=== PATIENT | female | born 1950 | race African-American/Black ===

== ENCOUNTER 2022-01-26 17:45 | Emergency (ER) | payer OTHER ==
[2022-01-26 18:17] VITALS: BP 143/85; PULSE 95; TEMP 98.5; BMI 30.1
== END 2022-01-26 20:15 | disposition home or self-care (01) ==
LOC: JER 17:45
DX: T39.015A Adverse effect of aspirin, initial encounter (principal)
CPT/HCPCS: 99281-25

== ENCOUNTER 2022-05-30 10:33 | Emergency (ER) | payer OTHER ==
[2022-05-30 10:38] VITALS: BP 103/67; PULSE 99; RESP 18; TEMP 97.8; BMI 26.5
== END 2022-05-30 12:41 | disposition home or self-care (01) ==
LOC: JER 10:33 → JERFT 10:33
DX: M54.50 Low back pain, unspecified (principal)
CPT/HCPCS: 99283-25

== ENCOUNTER 2022-12-10 13:18 | Inpatient (IN) | payer OTHER ==
[2022-12-10] MEDS ORDERED: ACETAMINOPHEN 1000 MG/100 ML BAG IVPB ONE ×2 (14:39→16:16)
[2022-12-10] MEDS ORDERED: ACETAMINOPHEN INJECTION 100 ML IVPB ONE (15:02)
[2022-12-10 15:03] LABS: BASO % 0.4 % (0-2.0); EOS % 0.2 % (0-4.5); HEMATOCRIT 32.1 % (32.4-45.2); HEMOGLOBIN 10.4 GM/dL (10.7-15.3); MCH 24.2 pg (25.7-33.7); MCHC 32.5 g/dl (32.0-36.0); MEAN CELL VOLUME 74.4 fl (80-96); MEAN PLT VOLUME 7.7 fl (7.5-11.1); MONO % 6.9 % (3.8-10.2); NEUT % 85.5 % (42.8-82.8); PLATELET COUNT 291 10^3/uL (134-434); RBC 4.31 M/mm3 (3.60-5.2); RDW 14.5 % (11.6-15.6); WHITE BLOOD COUNT 13.5 K/mm3 (4.0-10.0)
[2022-12-10 15:09] LABS: VENOUS BASE EXCESS 4.6 mmol/L (-2-2); VENOUS O2 SATURATION 34.5 % (70-80); VENOUS PCO2 51.5 mmHg (38-52); VENOUS PH 7.392 (7.310-7.410)
[2022-12-10 15:14] LABS: INR 1.14 (0.83-1.09); PROTHROMBIN TIME (PATIENT) 13.2 SEC (9.7-13.0)
[2022-12-10 15:16] LABS: ACTIVATED PTT 27.5 SECONDS (25.2-36.5)
[2022-12-10] MEDS ORDERED: PIPERACILLIN/TAZOB 4.5 GM 4.5 GM in DEXTROSE 5%-WATER 100 ML IVPB ONE (16:15)
[2022-12-10 16:16] LABS: ALBUMIN 2.5 g/dl (3.4-5.0); ALK PHOS 91 U/L (45-117); ANION GAP 9 MMOL/L (8-16); BILIRUBIN,TOTAL 0.8 mg/dL (0.2-1); BLOOD UREA NITROGEN 12.1 mg/dL (7-18); CALCIUM 8.5 mg/dL (8.5-10.1); CHLORIDE 101 mmol/L (98-107); CO2 23 mmol/L (21-32); CREATININE 0.8 mg/dL (0.55-1.3); GLUCOSE,RANDOM 103 mg/dL (74-106); LIPASE 70 U/L (73-393); SGOT/AST 92 U/L (15-37); SGPT/ALT 31 U/L (13-61); SODIUM 133 mmol/L (136-145); TOT PROT 7.1 g/dl (6.4-8.2)
[2022-12-10 16:43] LABS: EPI CELLS 8 /uL (0-25.1); HYALINE CASTS 22 /uL (0-3.1); PH,URINE 5.5 (5.0-8.0); URINE APPEARANCE CLOUDY; URINE BACTERIA 661 /uL (0-1359); URINE BILIRUBIN NEGATIVE (NEGATIVE); URINE COLOR DK YELLOW; URINE GLUCOSE (UA) NEGATIVE (NEGATIVE); URINE KETONE TRACE (NEGATIVE); URINE LEUK ESTERASE 2+ (NEGATIVE); URINE NITRITE NEGATIVE (NEGATIVE); URINE PROTEIN 1+ (NEGATIVE); URINE WBC 664 /uL (0-25.8)
[2022-12-10 16:47] VITALS: RESP 20
[2022-12-10 17:30] LABS: URINE RBC 75 /uL (0-23.9)
[2022-12-10 18:05] LABS: CALCIUM 8.6 mg/dL (8.5-10.1)
[2022-12-10 18:06] LABS: BLOOD UREA NITROGEN 12.7 mg/dL (7-18)
[2022-12-10 18:09] LABS: CREATININE 0.6 mg/dL (0.55-1.3)
[2022-12-10] MEDS ORDERED: SODIUM CHLORIDE 0.9% 500 ML INFUS.BAG IV ONE (20:17)
[2022-12-11] MEDS: CEFTRIAXONE 1 GM in DEXTROSE 5%-WATER - 50 ML IVPB SCH ×3 (02:44→10:34)
[2022-12-11 08:45] VITALS: BMI 24.4
[2022-12-11 09:50] LABS: BASO % 0.3 % (0-2.0); BLOOD UREA NITROGEN 10.4 mg/dL (7-18); CALCIUM 9.5 mg/dL (8.5-10.1); EOS % 0.5 % (0-4.5); HEMATOCRIT 32.2 % (32.4-45.2); HEMOGLOBIN 10.7 GM/dL (10.7-15.3); LYMPH % 8.6 % (8-40); MCH 24.5 pg (25.7-33.7); MCHC 33.2 g/dl (32.0-36.0); MEAN CELL VOLUME 73.8 fl (80-96); MEAN PLT VOLUME 7.9 fl (7.5-11.1); NEUT % 82.6 % (42.8-82.8); PLATELET COUNT 351 10^3/uL (134-434); RBC 4.36 M/mm3 (3.60-5.2); RDW 14.5 % (11.6-15.6); WHITE BLOOD COUNT 12.3 K/mm3 (4.0-10.0)
[2022-12-11 09:53] LABS: CREATININE 0.7 mg/dL (0.55-1.3)
[2022-12-11 09:55] LABS: BILIRUBIN,TOTAL 0.4 mg/dL (0.2-1); TOT PROT 7.3 g/dl (6.4-8.2)
[2022-12-11] MEDS: ENOXAPARIN NA (PORCINE) 40 MG/0.4 ML DISP.SYRIN SQ SCH (11:28)
[2022-12-11] MEDS ORDERED: ACETAMINOPHEN 325 MG TABLET (FP) PO PRN (16:56)
[2022-12-11 17:05] LABS: CALCIUM 8.5 mg/dL (8.5-10.1)
[2022-12-11 17:06] LABS: ALBUMIN 2.5 g/dl (3.4-5.0); BLOOD UREA NITROGEN 10.6 mg/dL (7-18); MAGNESIUM 2.1 mg/dL (1.8-2.4)
[2022-12-11 17:09] LABS: CREATININE 0.7 mg/dL (0.55-1.3)
[2022-12-11 17:11] LABS: BILIRUBIN,TOTAL 0.2 mg/dL (0.2-1); TOT PROT 6.3 g/dl (6.4-8.2)
[2022-12-11 17:35] LABS: BASO % 0.2 % (0-2.0); EOS % 0.8 % (0-4.5); HEMATOCRIT 29.6 % (32.4-45.2); HEMOGLOBIN 9.9 GM/dL (10.7-15.3); LYMPH % 9.6 % (8-40); MCH 24.6 pg (25.7-33.7); MCHC 33.3 g/dl (32.0-36.0); MEAN CELL VOLUME 73.8 fl (80-96); MEAN PLT VOLUME 7.2 fl (7.5-11.1); NEUT % 80.4 % (42.8-82.8); PLATELET COUNT 297 10^3/uL (134-434); RBC 4.01 M/mm3 (3.60-5.2); RDW 14.6 % (11.6-15.6); WHITE BLOOD COUNT 12.3 K/mm3 (4.0-10.0)
[2022-12-12] MEDS: CEFTRIAXONE 1 GM in DEXTROSE 5%-WATER - 50 ML IVPB SCH (09:43)
[2022-12-12] MEDS: ENOXAPARIN NA (PORCINE) 40 MG/0.4 ML DISP.SYRIN SQ SCH (09:52)
[2022-12-12 10:13] LABS: BASO % 0.5 % (0-2.0); EOS % 0.5 % (0-4.5); HEMATOCRIT 31.2 % (32.4-45.2); HEMOGLOBIN 10.3 GM/dL (10.7-15.3); LYMPH % 8.4 % (8-40); MCH 24.3 pg (25.7-33.7); MCHC 33.1 g/dl (32.0-36.0); MEAN CELL VOLUME 73.6 fl (80-96); MEAN PLT VOLUME 7.1 fl (7.5-11.1); MONO % 6.5 % (3.8-10.2); NEUT % 84.1 % (42.8-82.8); PLATELET COUNT 335 10^3/uL (134-434); RBC 4.24 M/mm3 (3.60-5.2); RDW 14.7 % (11.6-15.6); WHITE BLOOD COUNT 12.3 K/mm3 (4.0-10.0)
[2022-12-12 10:25] LABS: ALBUMIN 2.6 g/dl (3.4-5.0); CALCIUM 8.8 mg/dL (8.5-10.1)
[2022-12-12 10:26] LABS: BLOOD UREA NITROGEN 7.6 mg/dL (7-18)
[2022-12-12 10:28] LABS: CREATININE 0.7 mg/dL (0.55-1.3)
[2022-12-12 10:30] LABS: BILIRUBIN,TOTAL 0.4 mg/dL (0.2-1); TOT PROT 6.7 g/dl (6.4-8.2)
[2022-12-13 06:02] VITALS: BP 100/51; PULSE 101; TEMP 98.9
[2022-12-13 09:42] LABS: BASO % 0.2 % (0-2.0); EOS % 0.6 % (0-4.5); HEMATOCRIT 28.6 % (32.4-45.2); HEMOGLOBIN 9.5 GM/dL (10.7-15.3); LYMPH % 8.9 % (8-40); MCH 24.3 pg (25.7-33.7); MCHC 33.2 g/dl (32.0-36.0); MEAN CELL VOLUME 73.2 fl (80-96); MEAN PLT VOLUME 7.1 fl (7.5-11.1); MONO % 9.8 % (3.8-10.2); NEUT % 80.5 % (42.8-82.8); PLATELET COUNT 305 10^3/uL (134-434); RDW 14.4 % (11.6-15.6); WHITE BLOOD COUNT 12.4 K/mm3 (4.0-10.0)
[2022-12-13] MEDS: CEFTRIAXONE 1 GM in DEXTROSE 5%-WATER - 50 ML IVPB SCH (11:18)
[2022-12-13] MEDS: ENOXAPARIN NA (PORCINE) 40 MG/0.4 ML DISP.SYRIN SQ SCH (11:26)
[2022-12-13 11:36] LABS: ALBUMIN 2.4 g/dl (3.4-5.0); BLOOD UREA NITROGEN 6.6 mg/dL (7-18); CALCIUM 8.8 mg/dL (8.5-10.1)
[2022-12-13 11:39] LABS: CREATININE 0.6 mg/dL (0.55-1.3)
[2022-12-13 11:40] LABS: BILIRUBIN,TOTAL 0.2 mg/dL (0.2-1); TOT PROT 6.4 g/dl (6.4-8.2)
== END 2022-12-13 12:46 | disposition home or self-care (01) | DRG 689 ==
LOC: JER 13:18 → JERBED 19:11 → J8W 21:41
PROVIDERS: ADMIT Internal Medicine; ATTEND Nurse Practitioner Family
DX: N39.0 Urinary tract infection, site not specified (principal); E43 Unspecified severe protein-calorie malnutrition; R63.4 Abnormal weight loss; D25.9 Leiomyoma of uterus, unspecified; R62.7 Adult failure to thrive; Z68.24 Body mass index [BMI] 24.0-24.9, adult
CPT/HCPCS: 0241U-QW; 36415; 71045-TC-FY; 74177-TC; 80048; 80053; 81003; 82105; 82550; 82553; 82803; 83605; 83690; 83735; 84100; 84443; 85025; 85610; 85651; 85730; 86140; 86301; 86304; 87040; 87086; 93005; 93010; 99285-25; Q9967

== ENCOUNTER 2023-01-11 15:25 | Inpatient (IN) | payer OTHER ==
[2023-01-11] MEDS ORDERED: SODIUM CHLORIDE 1,000 ML IV STA ×2 (16:01→16:02)
[2023-01-11 16:43] LABS: HEMATOCRIT 35.9 % (32.4-45.2); HEMOGLOBIN 11.2 GM/dL (10.7-15.3); MCH 22.7 pg (25.7-33.7); MCHC 31.2 g/dl (32.0-36.0); MEAN CELL VOLUME 72.7 fl (80-96); RBC 4.93 M/mm3 (3.60-5.2); RDW 15.5 % (11.6-15.6)
[2023-01-11 16:48] LABS: INR 1.11 (0.83-1.09); PROTHROMBIN TIME (PATIENT) 12.9 SEC (9.7-13.0)
[2023-01-11 16:51] LABS: ACTIVATED PTT 26.8 SECONDS (25.2-36.5)
[2023-01-11 17:06] LABS: EPI CELLS >36 /uL (0-25.1); HYALINE CASTS 12 /uL (0-3.1); URINE APPEARANCE TURBID; URINE BILIRUBIN 1+ (NEGATIVE); URINE COLOR DK YELLOW; URINE GLUCOSE (UA) NEGATIVE (NEGATIVE); URINE KETONE TRACE (NEGATIVE); URINE LEUK ESTERASE TRACE (NEGATIVE); URINE NITRITE NEGATIVE (NEGATIVE); URINE PROTEIN 2+ (NEGATIVE); URINE WBC 227 /uL (0-25.8)
[2023-01-11 17:14] LABS: ALK PHOS 263 U/L (45-117); ANION GAP 20 MMOL/L (8-16); BILIRUBIN,TOTAL 1.3 mg/dL (0.2-1); BLOOD UREA NITROGEN 68.2 mg/dL (7-18); CALCIUM 8.9 mg/dL (8.5-10.1); CHLORIDE 105 mmol/L (98-107); CO2 16 mmol/L (21-32); GLUCOSE,RANDOM 270 mg/dL (74-106); MAGNESIUM 3.3 mg/dL (1.8-2.4); PHOSPHOROUS 7.3 mg/dL (2.5-4.9); POTASSIUM 5.1 mmol/L (3.5-5.1); SGOT/AST 114 U/L (15-37); SGPT/ALT 45 U/L (13-61); SODIUM 141 mmol/L (136-145); TOT PROT 6.6 g/dl (6.4-8.2)
[2023-01-11 17:20] LABS: VENOUS BASE EXCESS -6.6 mmol/L (-2-2); VENOUS O2 SATURATION 23.6 % (70-80); VENOUS PCO2 32.9 mmHg (38-52); VENOUS PH 7.358 (7.310-7.410)
[2023-01-11 17:23] LABS: LACTIC ACID 9.5 mmol/L (0.4-2.0)
[2023-01-11] MEDS ORDERED: LACTATED RINGERS SOLUTION 1000 ML INFUS.BAG IV ONE (17:27)
[2023-01-11] MEDS ORDERED: PIPERACILLIN/TAZOB 4.5 GM 4.5 GM in DEXTROSE 5%-WATER 100 ML IVPB ONE (17:33)
[2023-01-11] MEDS ORDERED: VANCOMYCIN 1 GM in D5W (PRE-DOCKED) 1,000 MG/250 ML (RESTRICTED TO ID ONLY IVPB ONE (17:33)
[2023-01-11 17:36] LABS: WHITE BLOOD COUNT 44.5 K/mm3 (4.0-10.0)
[2023-01-11] MEDS ORDERED: NOREPINEPHRINE BITARTRATE 4,000 MCG in DEXTROSE 5%-WATER - 496 ML IV SCH (17:45)
[2023-01-11] MEDS ORDERED: PIPERACILLIN/TAZOB 4.5 GM 4.5 GM/100 ML BAG IVPB ONE (17:47)
[2023-01-11] MEDS ORDERED: VANCOMYCIN/WATER FOR INJ (PEG) 1,000 MG/200 ML BAG IVPB ONE (18:25)
[2023-01-11 18:29] LABS: ANISOCYTOSIS 1+
[2023-01-11 18:30] LABS: PLATELET ESTIMATE DECREASED
[2023-01-11 18:34] LABS: MEAN PLT VOLUME 10.6 fl (7.5-11.1); PLATELET COUNT 12 10^3/uL (134-434)
[2023-01-11] MEDS ORDERED: SODIUM CHLORIDE 1,000 ML IV SCH ×2 (18:45→20:45)
[2023-01-11 18:53] LABS: LDH 612 U/L (84-246)
[2023-01-11 19:00] LABS: URIC ACID 14.1 mg/dL (2.6-7.2)
[2023-01-11] MEDS: MUPIROCIN 2% TOPICAL OINTMENT FOR DECOLONIZATION NS SCH (21:22)
[2023-01-11] MEDS: CHLORHEXIDINE GLUCONATE 4% CLEANSER FOR DECOLONIZATION TP SCH (21:22)
[2023-01-11 21:23] LABS: ARTERIAL BLD GAS O2 SATURATION 95.3 % (95-98); ARTERIAL BLOOD GAS BASE EXCESS -5.8 mmol/L (-2-2); ARTERIAL BLOOD GAS PO2 73.4 mmHg (80-100)
[2023-01-11 21:24] LABS: ALLENS TEST POSITIVE
[2023-01-11 21:27] LABS: LACTIC ACID 2.8 mmol/L (0.4-2.0)
[2023-01-11] MEDS ORDERED: LACTATED RINGERS SOLUTION 1,000 ML/1,000 ML INFUS.BAG IV STA (21:55)
[2023-01-11] MEDS: NOREPINEPHRINE BITARTRATE/D5W 8 MG/250 ML BAG IVPB SCH (22:57)
[2023-01-11 23:17] LABS: URINE BACTERIA 222.9 /uL (0-1359); URINE RBC 65.4 /uL (0-23.9)
[2023-01-11 23:42] LABS: HEMATOCRIT 25.8 % (32.4-45.2); HEMOGLOBIN 8.1 GM/dL (10.7-15.3); MCH 22.4 pg (25.7-33.7); MCHC 31.5 g/dl (32.0-36.0); MEAN CELL VOLUME 71.1 fl (80-96); MEAN PLT VOLUME 9.2 fl (7.5-11.1); PLATELET COUNT 41 10^3/uL (134-434); RBC 3.63 M/mm3 (3.60-5.2)
[2023-01-11 23:45] LABS: INR 1.18 (0.83-1.09); PROTHROMBIN TIME (PATIENT) 13.7 SEC (9.7-13.0)
[2023-01-11 23:52] LABS: WHITE BLOOD COUNT 47.4 K/mm3 (4.0-10.0)
[2023-01-11 23:57] LABS: POTASSIUM 3.7 mmol/L (3.5-5.1)
[2023-01-12] LABS: BLOOD UREA NITROGEN 55.7 mg/dL (7-18); MAGNESIUM 2.2 mg/dL (1.8-2.4)
[2023-01-12] MEDS ORDERED: VASOPRESSIN 40 UNITS/100 ML BAG IV SCH
[2023-01-12 00:02] LABS: URIC ACID 9.4 mg/dL (2.6-7.2)
[2023-01-12 00:03] LABS: CREATININE 1.2 mg/dL (0.55-1.3); PHOSPHOROUS 3.1 mg/dL (2.5-4.9)
[2023-01-12 00:10] LABS: LACTIC ACID 2.7 mmol/L (0.4-2.0)
[2023-01-12 00:11] LABS: CALCIUM 7.1 mg/dL (8.5-10.1)
[2023-01-12] MEDS ORDERED: GENTAMICIN INJECTION 120 MG in DEXTROSE 5%-WATER - 250 ML IVPB ONE (00:15)
[2023-01-12] MEDS ORDERED: VASOPRESSIN 20 UNITS/ML VIAL IV ONE (00:50)
[2023-01-12] MEDS: HYDROCORTISONE SOD SUCCINATE 100 MG/2 ML VIAL IVPB SCH ×4 (00:52→17:40)
[2023-01-12] MEDS: PIPERACILLIN/TAZOB 3.375 GM 3.375 GM in DEXTROSE 5%-WATER - 50 ML IVPB SCH ×3 (01:17→20:31)
[2023-01-12] MEDS: VASOPRESSIN 40 UNITS/100 ML BAG IV SCH (03:24)
[2023-01-12 05:55] LABS: ANISOCYTOSIS 3+; MACROCYTOSIS 0; ROULEAU 2+
[2023-01-12 06:45] LABS: HEMATOCRIT 29.1 % (32.4-45.2); HEMOGLOBIN 9.5 GM/dL (10.7-15.3); MCH 23.5 pg (25.7-33.7); MCHC 32.7 g/dl (32.0-36.0); MEAN CELL VOLUME 71.8 fl (80-96); RBC 4.06 M/mm3 (3.60-5.2); RDW 15.6 % (11.6-15.6); WHITE BLOOD COUNT 25.5 K/mm3 (4.0-10.0)
[2023-01-12 07:02] LABS: INR 1.18 (0.83-1.09); PROTHROMBIN TIME (PATIENT) 13.7 SEC (9.7-13.0)
[2023-01-12 07:03] LABS: POTASSIUM 3.9 mmol/L (3.5-5.1)
[2023-01-12 07:06] LABS: ALBUMIN 1.7 g/dl (3.4-5.0); CALCIUM 7.2 mg/dL (8.5-10.1)
[2023-01-12 07:07] LABS: BLOOD UREA NITROGEN 51.5 mg/dL (7-18)
[2023-01-12 07:09] LABS: CREATININE 0.8 mg/dL (0.55-1.3); MAGNESIUM 2.2 mg/dL (1.8-2.4); PHOSPHOROUS 3.2 mg/dL (2.5-4.9)
[2023-01-12 07:11] LABS: BILIRUBIN,TOTAL 1.7 mg/dL (0.2-1); TOT PROT 5.2 g/dl (6.4-8.2)
[2023-01-12 07:17] LABS: ALBUMIN 1.7 g/dl (3.4-5.0)
[2023-01-12 07:21] LABS: BILIRUBIN,DIRECT 1.1 mg/dL (0.0-0.2)
[2023-01-12 07:22] LABS: TOT PROT 5.3 g/dl (6.4-8.2)
[2023-01-12 07:23] LABS: BILIRUBIN,TOTAL 1.8 mg/dL (0.2-1); MEAN PLT VOLUME 10.4 fl (7.5-11.1)
[2023-01-12] MEDS: SODIUM CHLORIDE 1,000 ML IV SCH (09:25)
[2023-01-12] MEDS: MUPIROCIN 2% TOPICAL OINTMENT FOR DECOLONIZATION NS SCH ×2 (09:25→21:53)
[2023-01-12 09:57] LABS: PLATELET COUNT 10 10^3/uL (134-434)
[2023-01-12] MEDS ORDERED: ACETAMINOPHEN 1000 MG/100 ML BAG IVPB ONE (11:15)
[2023-01-12 11:37] LABS: ANISOCYTOSIS 2+; MACROCYTOSIS 0; TEAR DROP CELLS 1+; TOXIC GRANULATION 2+
[2023-01-12 12:41] LABS: RETICULOCYTES 1.34 % (0.5-1.5)
[2023-01-12] MEDS ORDERED: SODIUM CHLORIDE 1,000 ML IV STA (13:39)
[2023-01-12] MEDS: THIAMINE HCL 200 MG/2 ML VIAL IVPB SCH (16:03)
[2023-01-12] MEDS: LACTULOSE 20 GM/30 ML UDC (FOR ORAL USE ONLY) PO SCH ×3 (16:03→22:04)
[2023-01-12] MEDS: MEROPENEM 1 GM in DEXTROSE 5%-WATER 100 ML IVPB SCH (17:39)
[2023-01-12] MEDS: AMINO ACIDS/PROTEIN HYDROLYS 30 ML LIQUID.PKT PO SCH (17:40)
[2023-01-12 18:33] LABS: POTASSIUM 3.4 mmol/L (3.5-5.1)
[2023-01-12 18:38] LABS: URIC ACID 6.5 mg/dL (2.6-7.2)
[2023-01-12] MEDS: CHLORHEXIDINE GLUCONATE 4% CLEANSER FOR DECOLONIZATION TP SCH (21:53)
[2023-01-12] MEDS: NOREPINEPHRINE BITARTRATE/D5W 8 MG/250 ML BAG IVPB SCH (22:15)
[2023-01-13] MEDS: HYDROCORTISONE SOD SUCCINATE 100 MG/2 ML VIAL IVPB SCH ×5 (00:08→23:20)
[2023-01-13] MEDS: VASOPRESSIN 40 UNITS/100 ML BAG IV SCH ×2 (02:27→23:20)
[2023-01-13] MEDS: MEROPENEM 1 GM in DEXTROSE 5%-WATER 100 ML IVPB SCH ×3 (02:27→17:21)
[2023-01-13] MEDS: LACTULOSE 20 GM/30 ML UDC (FOR ORAL USE ONLY) PO SCH ×3 (05:22→21:25)
[2023-01-13 06:22] LABS: HEMATOCRIT 24.5 % (32.4-45.2); HEMOGLOBIN 8.1 GM/dL (10.7-15.3); MCH 23.2 pg (25.7-33.7); MCHC 32.9 g/dl (32.0-36.0); MEAN CELL VOLUME 70.5 fl (80-96); MEAN PLT VOLUME 9.9 fl (7.5-11.1); RBC 3.47 M/mm3 (3.60-5.2); RDW 15.2 % (11.6-15.6)
[2023-01-13 06:24] LABS: PLATELET COUNT 7 10^3/uL (134-434)
[2023-01-13 06:39] LABS: POTASSIUM 3.2 mmol/L (3.5-5.1)
[2023-01-13 06:40] LABS: CALCIUM 7.2 mg/dL (8.5-10.1); POTASSIUM 3.2 mmol/L (3.5-5.1)
[2023-01-13 06:43] LABS: ALBUMIN 1.6 g/dl (3.4-5.0); CALCIUM 7.1 mg/dL (8.5-10.1); MAGNESIUM 2.2 mg/dL (1.8-2.4)
[2023-01-13 06:44] LABS: BLOOD UREA NITROGEN 43.3 mg/dL (7-18); PHOSPHOROUS 1.6 mg/dL (2.5-4.9); URIC ACID 6.1 mg/dL (2.6-7.2)
[2023-01-13 06:46] LABS: CREATININE 0.2 mg/dL (0.55-1.3); PHOSPHOROUS 1.7 mg/dL (2.5-4.9); URIC ACID 6.1 mg/dL (2.6-7.2)
[2023-01-13 06:48] LABS: BILIRUBIN,TOTAL 2.8 mg/dL (0.2-1); TOT PROT 4.5 g/dl (6.4-8.2)
[2023-01-13] MEDS: KCL 10 MEQ IVPB 10 MEQ/100 ML INFUS.BAG IVPB SCH ×2 (06:49→08:47)
[2023-01-13] MEDS ORDERED: NAPH,MB-DB/K PH,MBDB POWDER PACKET PO ONE (07:30)
[2023-01-13] MEDS: SODIUM CHLORIDE 1,000 ML IV SCH ×2 (08:47→09:28)
[2023-01-13 08:53] LABS: ANISOCYTOSIS 0; HELMET CELLS 0; HOWELL-JOLLY BODIES 0; MACROCYTOSIS 0; OVALOCYTE 0; ROULEAU 0; SICKELED CELLS 0; TARGET CELLS 0; TEAR DROP CELLS 0; TOXIC GRANULATION 0
[2023-01-13] MEDS: MUPIROCIN 2% TOPICAL OINTMENT FOR DECOLONIZATION NS SCH ×2 (09:25→21:25)
[2023-01-13] MEDS: THIAMINE HCL 200 MG/2 ML VIAL IVPB SCH (09:25)
[2023-01-13] MEDS: ZINC SULFATE 220 MG CAPSULE (FP) PO SCH (10:00)
[2023-01-13] MEDS: AMINO ACIDS/PROTEIN HYDROLYS 30 ML LIQUID.PKT PO SCH ×2 (10:00→16:39)
[2023-01-13] MEDS: FLUDROCORTISONE ACETATE 0.1 MG TABLET (FP) PO SCH (10:00)
[2023-01-13] MEDS: ASCORBIC ACID 500 MG TABLET (FP) PO SCH (10:01)
[2023-01-13] MEDS: MULTIVITAMINS (DAILY MVI) TABLET (FP) PO SCH (10:01)
[2023-01-13] MEDS ORDERED: SODIUM CHLORIDE 1,000 ML IV STA (16:19)
[2023-01-13 18:55] LABS: HEMATOCRIT 21.8 % (32.4-45.2); MCH 22.3 pg (25.7-33.7); MCHC 31.4 g/dl (32.0-36.0); MEAN CELL VOLUME 71.1 fl (80-96); RBC 3.06 M/mm3 (3.60-5.2); RDW 15.7 % (11.6-15.6); WHITE BLOOD COUNT 23.2 K/mm3 (4.0-10.0)
[2023-01-13 18:59] LABS: HEMOGLOBIN 6.8 GM/dL (10.7-15.3)
[2023-01-13 19:00] LABS: PLATELET COUNT 5 10^3/uL (134-434)
[2023-01-13 20:35] LABS: INR 1.13 (0.83-1.09); PROTHROMBIN TIME (PATIENT) 13.1 SEC (9.7-13.0)
[2023-01-13] MEDS: CHLORHEXIDINE GLUCONATE 4% CLEANSER FOR DECOLONIZATION TP SCH (21:25)
[2023-01-13] MEDS ORDERED: DEXMEDETOMIDINE PREMIX 400 MCG/100 ML BAG IVPB ONE (22:25)
[2023-01-13] MEDS: DEXMEDETOMIDINE PREMIX 400 MCG/100 ML BAG IVPB SCH (22:32)
[2023-01-13] MEDS: NOREPINEPHRINE BITARTRATE/D5W 8 MG/250 ML BAG IVPB SCH (23:22)
[2023-01-14] MEDS: MEROPENEM 1 GM in DEXTROSE 5%-WATER 100 ML IVPB SCH ×2 (01:15→09:06)
[2023-01-14] MEDS: DEXMEDETOMIDINE PREMIX 400 MCG/100 ML BAG IVPB SCH (03:29)
[2023-01-14] MEDS: HYDROCORTISONE SOD SUCCINATE 100 MG/2 ML VIAL IVPB SCH ×3 (06:04→17:15)
[2023-01-14] MEDS: LACTULOSE 20 GM/30 ML UDC (FOR ORAL USE ONLY) PO SCH ×3 (06:04→21:28)
[2023-01-14] MEDS: SODIUM CHLORIDE 1,000 ML IV SCH (06:05)
[2023-01-14 06:37] LABS: HEMATOCRIT 25.7 % (32.4-45.2); HEMOGLOBIN 8.8 GM/dL (10.7-15.3); MCHC 34.2 g/dl (32.0-36.0); MEAN PLT VOLUME 8.6 fl (7.5-11.1); RBC 3.52 M/mm3 (3.60-5.2); RDW 16.6 % (11.6-15.6); WHITE BLOOD COUNT 20.7 K/mm3 (4.0-10.0)
[2023-01-14 06:54] LABS: POTASSIUM 3.2 mmol/L (3.5-5.1)
[2023-01-14 06:56] LABS: POTASSIUM 3.2 mmol/L (3.5-5.1)
[2023-01-14 06:57] LABS: ALBUMIN 1.8 g/dl (3.4-5.0); BLOOD UREA NITROGEN 37.2 mg/dL (7-18); CALCIUM 7.2 mg/dL (8.5-10.1); MAGNESIUM 2.3 mg/dL (1.8-2.4)
[2023-01-14 06:59] LABS: PLATELET COUNT 35 10^3/uL (134-434)
[2023-01-14 07:00] LABS: CALCIUM 7.5 mg/dL (8.5-10.1); CREATININE 0.2 mg/dL (0.55-1.3); PHOSPHOROUS 1.9 mg/dL (2.5-4.9); URIC ACID 6.9 mg/dL (2.6-7.2)
[2023-01-14 07:01] LABS: TOT PROT 4.8 g/dl (6.4-8.2)
[2023-01-14 07:02] LABS: BILIRUBIN,TOTAL 1.6 mg/dL (0.2-1)
[2023-01-14 07:04] LABS: PHOSPHOROUS 1.9 mg/dL (2.5-4.9)
[2023-01-14] MEDS: KCL 10 MEQ IVPB 10 MEQ/100 ML INFUS.BAG IVPB SCH ×2 (07:10→09:07)
[2023-01-14] MEDS ORDERED: LACTATED RINGERS SOLUTION 1,000 ML/1,000 ML INFUS.BAG IV SCH (07:15)
[2023-01-14 08:43] LABS: ANISOCYTOSIS 0; HELMET CELLS 0; HOWELL-JOLLY BODIES 0; MACROCYTOSIS 0; OVALOCYTE 0; ROULEAU 0; SICKELED CELLS 0; TARGET CELLS 0; TEAR DROP CELLS 0; TOXIC GRANULATION 0
[2023-01-14] MEDS ORDERED: LACTATED RINGERS SOLUTION 1000 ML INFUS.BAG IV ONE (09:02)
[2023-01-14] MEDS: ZINC SULFATE 220 MG CAPSULE (FP) PO SCH (09:05)
[2023-01-14] MEDS: FLUDROCORTISONE ACETATE 0.1 MG TABLET (FP) PO SCH (09:05)
[2023-01-14] MEDS: AMINO ACIDS/PROTEIN HYDROLYS 30 ML LIQUID.PKT PO SCH ×2 (09:05→17:07)
[2023-01-14] MEDS: MULTIVITAMINS (DAILY MVI) TABLET (FP) PO SCH (09:05)
[2023-01-14] MEDS: ASCORBIC ACID 500 MG TABLET (FP) PO SCH (09:06)
[2023-01-14] MEDS: MUPIROCIN 2% TOPICAL OINTMENT FOR DECOLONIZATION NS SCH ×2 (09:07→21:27)
[2023-01-14] MEDS: THIAMINE HCL 200 MG/2 ML VIAL IVPB SCH (09:17)
[2023-01-14] MEDS ORDERED: CEFTRIAXONE 1 GM in DEXTROSE 5%-WATER - 50 ML IVPB SCH (10:00)
[2023-01-14] MEDS: LACTATED RINGERS SOLUTION 1,000 ML/1,000 ML INFUS.BAG IV SCH ×2 (11:27→21:28)
[2023-01-14] MEDS: CEFTRIAXONE 2 GM in DEXTROSE 5%-WATER 100 ML IVPB SCH (12:23)
[2023-01-14] MEDS ORDERED: SODIUM CHLORIDE 500 ML IV STA (17:36)
[2023-01-14 18:09] LABS: HEMATOCRIT 27.9 % (32.4-45.2); HEMOGLOBIN 9.1 GM/dL (10.7-15.3); MCH 23.7 pg (25.7-33.7); MCHC 32.5 g/dl (32.0-36.0); RBC 3.83 M/mm3 (3.60-5.2); RDW 16.6 % (11.6-15.6); WHITE BLOOD COUNT 19.3 K/mm3 (4.0-10.0)
[2023-01-14 18:11] LABS: PLATELET COUNT 13 10^3/uL (134-434)
[2023-01-14] MEDS: CHLORHEXIDINE GLUCONATE 4% CLEANSER FOR DECOLONIZATION TP SCH (21:28)
[2023-01-15] MEDS: VASOPRESSIN 40 UNITS/100 ML BAG IV SCH (01:03)
[2023-01-15] MEDS: HYDROCORTISONE SOD SUCCINATE 100 MG/2 ML VIAL IVPB SCH ×4 (01:04→15:51)
[2023-01-15] MEDS: NOREPINEPHRINE BITARTRATE/D5W 8 MG/250 ML BAG IVPB SCH (05:54)
[2023-01-15] MEDS: LACTULOSE 20 GM/30 ML UDC (FOR ORAL USE ONLY) PO SCH ×3 (05:55→21:32)
[2023-01-15 07:21] LABS: HEMATOCRIT 27.8 % (32.4-45.2); HEMOGLOBIN 9.4 GM/dL (10.7-15.3); MCH 24.7 pg (25.7-33.7); MCHC 33.6 g/dl (32.0-36.0); MEAN CELL VOLUME 73.5 fl (80-96); MEAN PLT VOLUME 9.6 fl (7.5-11.1); RBC 3.79 M/mm3 (3.60-5.2); RDW 16.2 % (11.6-15.6); WHITE BLOOD COUNT 19.7 K/mm3 (4.0-10.0)
[2023-01-15 07:32] LABS: PLATELET COUNT 32 10^3/uL (134-434)
[2023-01-15 07:42] LABS: POTASSIUM 3.5 mmol/L (3.5-5.1)
[2023-01-15 07:46] LABS: CALCIUM 7.8 mg/dL (8.5-10.1)
[2023-01-15 07:47] LABS: ALBUMIN 1.6 g/dl (3.4-5.0)
[2023-01-15 07:49] LABS: CREATININE 0.4 mg/dL (0.55-1.3); URIC ACID 7.9 mg/dL (2.6-7.2)
[2023-01-15 07:50] LABS: PHOSPHOROUS 2.3 mg/dL (2.5-4.9)
[2023-01-15 07:51] LABS: TOT PROT 4.8 g/dl (6.4-8.2)
[2023-01-15 07:52] LABS: BILIRUBIN,TOTAL 0.9 mg/dL (0.2-1)
[2023-01-15] MEDS ORDERED: POTASSIUM CHLORIDE TABS 20 MEQ TABLET.ER (FP) PO ONE (08:36)
[2023-01-15 09:44] LABS: ANISOCYTOSIS 0; MACROCYTOSIS 0
[2023-01-15] MEDS: AMINO ACIDS/PROTEIN HYDROLYS 30 ML LIQUID.PKT PO SCH ×3 (10:00→17:42)
[2023-01-15] MEDS: FLUDROCORTISONE ACETATE 0.1 MG TABLET (FP) PO SCH (10:15)
[2023-01-15] MEDS: MULTIVITAMINS (DAILY MVI) TABLET (FP) PO SCH (10:15)
[2023-01-15] MEDS: THIAMINE HCL 200 MG/2 ML VIAL IVPB SCH (10:18)
[2023-01-15] MEDS: CEFTRIAXONE 2 GM in DEXTROSE 5%-WATER 100 ML IVPB SCH (10:20)
[2023-01-15] MEDS: ZINC SULFATE 220 MG CAPSULE (FP) PO SCH (10:20)
[2023-01-15] MEDS: LACTATED RINGERS SOLUTION 1,000 ML/1,000 ML INFUS.BAG IV SCH (10:30)
[2023-01-15] MEDS: ASCORBIC ACID 500 MG TABLET (FP) PO SCH (10:40)
[2023-01-15] MEDS: MUPIROCIN 2% TOPICAL OINTMENT FOR DECOLONIZATION NS SCH ×2 (10:40→21:33)
[2023-01-15] MEDS ORDERED: LACTATED RINGERS SOLUTION 1,000 ML/1,000 ML INFUS.BAG IV STA (15:23)
[2023-01-15 16:28] VITALS: BMI 25.0
[2023-01-15] MEDS: AMINO ACIDS 4.25%/D5W 1,000 ML IV SCH (17:00)
[2023-01-15] MEDS: CHLORHEXIDINE GLUCONATE 4% CLEANSER FOR DECOLONIZATION TP SCH (21:32)
[2023-01-15] MEDS ORDERED: INSULIN (NOVOLOG) ASPART 100 UNITS/ML 10ML VIAL ONE (21:38)
[2023-01-15] MEDS: INSULIN SLIDING SCALE (NOVOLOG) 1 VIAL SQ SCH (21:39)
[2023-01-15] MEDS ORDERED: FAT EMULSION/OLIVE/SOY (CLINOLIPID) 250 ML EMULSION IV SCH (22:00)
[2023-01-15] MEDS: FAT EMULSION/OLIVE/SOY/PHOSPHO 250 ML IV SCH (22:06)
[2023-01-16] MEDS: NOREPINEPHRINE BITARTRATE/D5W 8 MG/250 ML BAG IVPB SCH (01:21)
[2023-01-16] MEDS: VASOPRESSIN 40 UNITS/100 ML BAG IV SCH (01:21)
[2023-01-16] MEDS: LACTULOSE 20 GM/30 ML UDC (FOR ORAL USE ONLY) PO SCH ×3 (06:11→21:38)
[2023-01-16] MEDS: INSULIN SLIDING SCALE (NOVOLOG) 1 VIAL SQ SCH ×4 (06:18→21:37)
[2023-01-16] MEDS: AMINO ACIDS 4.25%/D5W 1,000 ML IV SCH ×2 (06:42→17:03)
[2023-01-16 07:34] LABS: HEMATOCRIT 27.4 % (32.4-45.2); HEMOGLOBIN 9.1 GM/dL (10.7-15.3); MCH 24.6 pg (25.7-33.7); MCHC 33.3 g/dl (32.0-36.0); MEAN CELL VOLUME 73.8 fl (80-96); MEAN PLT VOLUME 9.3 fl (7.5-11.1); RBC 3.71 M/mm3 (3.60-5.2); RDW 17.1 % (11.6-15.6); WHITE BLOOD COUNT 20.7 K/mm3 (4.0-10.0)
[2023-01-16 07:36] LABS: PLATELET COUNT 21 10^3/uL (134-434)
[2023-01-16 08:00] LABS: CHLORIDE 117 mmol/L (98-107); POTASSIUM 3.8 mmol/L (3.5-5.1); SODIUM 145 mmol/L (136-145)
[2023-01-16 08:03] LABS: ALBUMIN 1.6 g/dl (3.4-5.0); ANION GAP 7 MMOL/L (8-16); BLOOD UREA NITROGEN 31.2 mg/dL (7-18); CALCIUM 7.7 mg/dL (8.5-10.1); CO2 21 mmol/L (21-32); MAGNESIUM 1.7 mg/dL (1.8-2.4)
[2023-01-16 08:06] LABS: CREATININE 0.5 mg/dL (0.55-1.3); PHOSPHOROUS 1.9 mg/dL (2.5-4.9); SGOT/AST 19 U/L (15-37); SGPT/ALT 32 U/L (13-61); URIC ACID 7.7 mg/dL (2.6-7.2)
[2023-01-16 08:08] LABS: BILIRUBIN,TOTAL 0.7 mg/dL (0.2-1); TOT PROT 4.8 g/dl (6.4-8.2)
[2023-01-16 08:09] LABS: ALK PHOS 157 U/L (45-117)
[2023-01-16 08:11] LABS: LDH 295 U/L (84-246)
[2023-01-16 08:15] LABS: GLUCOSE,RANDOM 431 mg/dL (74-106)
[2023-01-16] MEDS: INSULIN (LEVEMIR) 100 UNITS/ML UNITS SQ SCH ×2 (09:10→21:37)
[2023-01-16] MEDS: AMINO ACIDS/PROTEIN HYDROLYS 30 ML LIQUID.PKT PO SCH ×2 (09:12→17:04)
[2023-01-16] MEDS: FLUDROCORTISONE ACETATE 0.1 MG TABLET (FP) PO SCH (09:22)
[2023-01-16] MEDS: CEFTRIAXONE 2 GM in DEXTROSE 5%-WATER 100 ML IVPB SCH (09:22)
[2023-01-16] MEDS: MUPIROCIN 2% TOPICAL OINTMENT FOR DECOLONIZATION NS SCH (09:22)
[2023-01-16] MEDS: ASCORBIC ACID 500 MG TABLET (FP) PO SCH (09:29)
[2023-01-16] MEDS: MULTIVITAMINS (DAILY MVI) TABLET (FP) PO SCH (09:29)
[2023-01-16] MEDS: ZINC SULFATE 220 MG CAPSULE (FP) PO SCH (09:29)
[2023-01-16 09:43] LABS: ANISOCYTOSIS 0; MACROCYTOSIS 0
[2023-01-16] MEDS ORDERED: INSULIN (NOVOLOG) ASPART 100 UNITS/ML 10ML VIAL ONE ×2 (11:36→17:03)
[2023-01-16] MEDS: CHLORHEXIDINE GLUCONATE 4% CLEANSER FOR DECOLONIZATION TP SCH (21:38)
[2023-01-16] MEDS: FAT EMULSION/OLIVE/SOY/PHOSPHO 250 ML IV SCH (21:38)
[2023-01-17] MEDS: AMINO ACIDS 4.25%/D5W 1,000 ML IV SCH ×2 (06:00→16:42)
[2023-01-17] MEDS: LACTULOSE 20 GM/30 ML UDC (FOR ORAL USE ONLY) PO SCH (06:01)
[2023-01-17] MEDS: INSULIN SLIDING SCALE (NOVOLOG) 1 VIAL SQ SCH ×4 (06:23→22:06)
[2023-01-17 07:49] LABS: CHLORIDE 113 mmol/L (98-107); SODIUM 146 mmol/L (136-145)
[2023-01-17 07:51] LABS: BASO % 0.1 % (0-2.0); EOS % 1.1 % (0-4.5); HEMATOCRIT 24.2 % (32.4-45.2); HEMOGLOBIN 8.3 GM/dL (10.7-15.3); MCHC 34.3 g/dl (32.0-36.0); MEAN CELL VOLUME 72.9 fl (80-96); MEAN PLT VOLUME 9.7 fl (7.5-11.1); MONO % 4.5 % (3.8-10.2); NEUT % 86.3 % (42.8-82.8); RBC 3.33 M/mm3 (3.60-5.2); RDW 16.3 % (11.6-15.6)
[2023-01-17 07:52] LABS: CALCIUM 7.6 mg/dL (8.5-10.1)
[2023-01-17 07:53] LABS: ALBUMIN 1.5 g/dl (3.4-5.0); BLOOD UREA NITROGEN 28.2 mg/dL (7-18); CO2 23 mmol/L (21-32); GLUCOSE,RANDOM 243 mg/dL (74-106); MAGNESIUM 1.4 mg/dL (1.8-2.4)
[2023-01-17 07:56] LABS: CREATININE 0.4 mg/dL (0.55-1.3); SGOT/AST 30 U/L (15-37); SGPT/ALT 26 U/L (13-61)
[2023-01-17 07:58] LABS: BILIRUBIN,TOTAL 0.7 mg/dL (0.2-1); TOT PROT 4.7 g/dl (6.4-8.2)
[2023-01-17 07:59] LABS: ALK PHOS 158 U/L (45-117)
[2023-01-17 08:19] LABS: PLATELET COUNT 25 10^3/uL (134-434)
[2023-01-17 08:21] LABS: ANION GAP 10 MMOL/L (8-16); POTASSIUM 2.8 mmol/L (3.5-5.1)
[2023-01-17] MEDS ORDERED: MAGNESIUM SULF 50% (8.12 MEQ/2 ML-1 GM VIAL) IVPB ONE (08:32)
[2023-01-17] MEDS: AMINO ACIDS/PROTEIN HYDROLYS 30 ML LIQUID.PKT PO SCH ×2 (08:55→17:12)
[2023-01-17] MEDS: FLUDROCORTISONE ACETATE 0.1 MG TABLET (FP) PO SCH (09:20)
[2023-01-17] MEDS: CEFTRIAXONE 2 GM in DEXTROSE 5%-WATER 100 ML IVPB SCH (09:24)
[2023-01-17] MEDS: MULTIVITAMINS (DAILY MVI) TABLET (FP) PO SCH (09:24)
[2023-01-17] MEDS: ASCORBIC ACID 500 MG TABLET (FP) PO SCH (09:24)
[2023-01-17] MEDS: ZINC SULFATE 220 MG CAPSULE (FP) PO SCH (09:24)
[2023-01-17] MEDS ORDERED: INSULIN (NOVOLOG) ASPART 100 UNITS/ML 10ML VIAL ONE ×3 (11:01→21:58)
[2023-01-17] MEDS: MIDODRINE HCL 5 MG TABLET PO SCH ×2 (15:20→17:14)
[2023-01-17 18:28] LABS: POTASSIUM 3.5 mmol/L (3.5-5.1)
[2023-01-17 18:30] LABS: CALCIUM 7.4 mg/dL (8.5-10.1)
[2023-01-17 18:31] LABS: BLOOD UREA NITROGEN 23.5 mg/dL (7-18)
[2023-01-17 18:34] LABS: CREATININE 0.4 mg/dL (0.55-1.3)
[2023-01-17] MEDS: FAT EMULSION/OLIVE/SOY/PHOSPHO 250 ML IV SCH (22:06)
[2023-01-17] MEDS: INSULIN (LEVEMIR) 100 UNITS/ML UNITS SQ SCH (22:06)
[2023-01-17] MEDS: CHLORHEXIDINE GLUCONATE 4% CLEANSER FOR DECOLONIZATION TP SCH (22:06)
[2023-01-18] MEDS: AMINO ACIDS 4.25%/D5W 1,000 ML IV SCH (06:25)
[2023-01-18] MEDS: INSULIN SLIDING SCALE (NOVOLOG) 1 VIAL SQ SCH ×4 (06:40→21:33)
[2023-01-18 07:24] LABS: BASO % 0.3 % (0-2.0); EOS % 1.5 % (0-4.5); HEMATOCRIT 22.4 % (32.4-45.2); HEMOGLOBIN 7.4 GM/dL (10.7-15.3); LYMPH % 7.6 % (8-40); MCH 24.3 pg (25.7-33.7); MCHC 33.1 g/dl (32.0-36.0); MEAN CELL VOLUME 73.6 fl (80-96); MEAN PLT VOLUME 9.9 fl (7.5-11.1); MONO % 4.2 % (3.8-10.2); NEUT % 86.4 % (42.8-82.8); PLATELET COUNT 45 10^3/uL (134-434); RBC 3.05 M/mm3 (3.60-5.2); RDW 17.2 % (11.6-15.6); WHITE BLOOD COUNT 16.8 K/mm3 (4.0-10.0)
[2023-01-18 07:34] LABS: ALBUMIN 1.4 g/dl (3.4-5.0); BLOOD UREA NITROGEN 21.4 mg/dL (7-18); MAGNESIUM 1.6 mg/dL (1.8-2.4)
[2023-01-18 07:37] LABS: CREATININE 0.3 mg/dL (0.55-1.3)
[2023-01-18 07:38] LABS: BILIRUBIN,TOTAL 0.4 mg/dL (0.2-1); TOT PROT 4.4 g/dl (6.4-8.2)
[2023-01-18] MEDS: AMINO ACIDS/PROTEIN HYDROLYS 30 ML LIQUID.PKT PO SCH ×2 (08:17→17:26)
[2023-01-18] MEDS: FAMOTIDINE 20 MG TABLET PO SCH (09:37)
[2023-01-18] MEDS: MIDODRINE HCL 5 MG TABLET PO SCH ×3 (09:37→19:31)
[2023-01-18] MEDS: CEFTRIAXONE 2 GM in DEXTROSE 5%-WATER 100 ML IVPB SCH (09:37)
[2023-01-18] MEDS: FLUDROCORTISONE ACETATE 0.1 MG TABLET (FP) PO SCH (09:38)
[2023-01-18] MEDS: ASCORBIC ACID 500 MG TABLET (FP) PO SCH (09:39)
[2023-01-18] MEDS: MULTIVITAMINS (DAILY MVI) TABLET (FP) PO SCH (09:39)
[2023-01-18] MEDS: ZINC SULFATE 220 MG CAPSULE (FP) PO SCH (09:39)
[2023-01-18] MEDS ORDERED: INSULIN (NOVOLOG) ASPART 100 UNITS/ML 10ML VIAL ONE ×3 (10:50→21:02)
[2023-01-18] MEDS ORDERED: MAGNESIUM SULF 50% (8.12 MEQ/2 ML-1 GM VIAL) IVPB ONE (11:01)
[2023-01-18] MEDS ORDERED: SODIUM PHOSPHATE - 20 MM in DEXTROSE 5%-WATER - 250 ML IVPB ONE (11:01)
[2023-01-18] MEDS: KCL 10 MEQ IVPB 10 MEQ/100 ML INFUS.BAG IVPB SCH ×2 (11:17→11:58)
[2023-01-18] MEDS ORDERED: SODIUM PHOSPHATE - 20 MM in SODIUM CHLORIDE 250 ML IVPB ONE (12:00)
[2023-01-18 20:03] LABS: POTASSIUM 3.4 mmol/L (3.5-5.1)
[2023-01-18 20:05] LABS: CALCIUM 7.2 mg/dL (8.5-10.1)
[2023-01-18 20:06] LABS: BLOOD UREA NITROGEN 17.6 mg/dL (7-18); MAGNESIUM 1.8 mg/dL (1.8-2.4)
[2023-01-18 20:09] LABS: CREATININE 0.3 mg/dL (0.55-1.3); PHOSPHOROUS 2.7 mg/dL (2.5-4.9)
[2023-01-18] MEDS: INSULIN (LEVEMIR) 100 UNITS/ML UNITS SQ SCH (21:32)
[2023-01-18] MEDS: CHLORHEXIDINE GLUCONATE 4% CLEANSER FOR DECOLONIZATION TP SCH (22:18)
[2023-01-19] MEDS: INSULIN SLIDING SCALE (NOVOLOG) 1 VIAL SQ SCH ×4 (06:11→21:36)
[2023-01-19 07:50] LABS: BASO % 0.1 % (0-2.0); EOS % 1.5 % (0-4.5); HEMATOCRIT 27.9 % (32.4-45.2); HEMOGLOBIN 8.6 GM/dL (10.7-15.3); LYMPH % 7.4 % (8-40); MCH 23.8 pg (25.7-33.7); MEAN PLT VOLUME 10.2 fl (7.5-11.1); MONO % 3.7 % (3.8-10.2); NEUT % 87.3 % (42.8-82.8); PLATELET COUNT 56 10^3/uL (134-434); RBC 3.62 M/mm3 (3.60-5.2); RDW 16.8 % (11.6-15.6); WHITE BLOOD COUNT 12.4 K/mm3 (4.0-10.0)
[2023-01-19 08:12] LABS: CALCIUM 7.4 mg/dL (8.5-10.1)
[2023-01-19 08:13] LABS: ALBUMIN 1.5 g/dl (3.4-5.0); BLOOD UREA NITROGEN 13.6 mg/dL (7-18); MAGNESIUM 1.8 mg/dL (1.8-2.4)
[2023-01-19 08:16] LABS: CREATININE 0.3 mg/dL (0.55-1.3); PHOSPHOROUS 2.2 mg/dL (2.5-4.9)
[2023-01-19 08:17] LABS: BILIRUBIN,TOTAL 0.4 mg/dL (0.2-1)
[2023-01-19 08:18] LABS: TOT PROT 4.9 g/dl (6.4-8.2)
[2023-01-19] MEDS ORDERED: POTASSIUM CHLORIDE ORAL LIQUID 20 MEQ/15 ML PO ONE (10:00)
[2023-01-19] MEDS: ZINC SULFATE 220 MG CAPSULE (FP) PO SCH ×2 (10:13→13:18)
[2023-01-19] MEDS: FAMOTIDINE 20 MG TABLET PO SCH ×2 (10:13→13:18)
[2023-01-19] MEDS: CEFTRIAXONE 2 GM in DEXTROSE 5%-WATER 100 ML IVPB SCH (10:13)
[2023-01-19] MEDS: MULTIVITAMINS (DAILY MVI) TABLET (FP) PO SCH ×2 (10:13→13:18)
[2023-01-19] MEDS: FLUDROCORTISONE ACETATE 0.1 MG TABLET (FP) PO SCH ×2 (10:14→13:17)
[2023-01-19] MEDS: ASCORBIC ACID 500 MG TABLET (FP) PO SCH ×2 (10:15→13:18)
[2023-01-19] MEDS: MIDODRINE HCL 5 MG TABLET PO SCH ×4 (10:15→18:05)
[2023-01-19] MEDS: AMINO ACIDS/PROTEIN HYDROLYS 30 ML LIQUID.PKT PO SCH ×2 (11:40→18:06)
[2023-01-19] MEDS: NAPH,MB-DB/K PH,MBDB POWDER PACKET PO SCH ×2 (13:16→21:28)
[2023-01-19] MEDS ORDERED: INSULIN (NOVOLOG) ASPART 100 UNITS/ML 10ML VIAL ONE (21:04)
[2023-01-19] MEDS: DOCUSATE SODIUM 100 MG CAPSULE (FP) PO SCH (21:28)
[2023-01-19] MEDS: COLLAGENASE CLOSTRIDIUM HIST. 30 GRAMS TUBE TP SCH (21:28)
[2023-01-19] MEDS ORDERED: INSULIN (LEVEMIR) 100 UNITS/ML UNITS SQ SCH (22:00)
[2023-01-19] MEDS ORDERED: CHLORHEXIDINE GLUCONATE 4% CLEANSER FOR DECOLONIZATION TP SCH (22:00)
[2023-01-20] MEDS: NAPH,MB-DB/K PH,MBDB POWDER PACKET PO SCH ×2 (06:41→15:52)
[2023-01-20] MEDS: INSULIN SLIDING SCALE (NOVOLOG) 1 VIAL SQ SCH ×3 (06:55→17:52)
[2023-01-20 10:03] LABS: EOS % 0.6 % (0-4.5); HEMATOCRIT 24.3 % (32.4-45.2); HEMOGLOBIN 7.7 GM/dL (10.7-15.3); LYMPH % 8.5 % (8-40); MCH 24.1 pg (25.7-33.7); MCHC 31.5 g/dl (32.0-36.0); MEAN CELL VOLUME 76.4 fl (80-96); MEAN PLT VOLUME 9.4 fl (7.5-11.1); MONO % 5.2 % (3.8-10.2); NEUT % 85.7 % (42.8-82.8); PLATELET COUNT 79 10^3/uL (134-434); RBC 3.19 M/mm3 (3.60-5.2); RDW 17.6 % (11.6-15.6); WHITE BLOOD COUNT 11.3 K/mm3 (4.0-10.0)
[2023-01-20 10:25] LABS: CHLORIDE 109 mmol/L (98-107); SODIUM 142 mmol/L (136-145)
[2023-01-20 10:29] LABS: CALCIUM 7.6 mg/dL (8.5-10.1)
[2023-01-20 10:30] LABS: ALBUMIN 1.4 g/dl (3.4-5.0); CO2 28 mmol/L (21-32); MAGNESIUM 1.8 mg/dL (1.8-2.4)
[2023-01-20 10:31] LABS: BLOOD UREA NITROGEN 11.8 mg/dL (7-18)
[2023-01-20 10:33] LABS: CREATININE 0.3 mg/dL (0.55-1.3); SGOT/AST 29 U/L (15-37)
[2023-01-20 10:34] LABS: SGPT/ALT 14 U/L (13-61)
[2023-01-20 10:35] LABS: BILIRUBIN,TOTAL 0.4 mg/dL (0.2-1)
[2023-01-20 10:36] LABS: ALK PHOS 148 U/L (45-117); TOT PROT 4.7 g/dl (6.4-8.2)
[2023-01-20 10:40] LABS: ANION GAP 5 MMOL/L (8-16); GLUCOSE,RANDOM 48 mg/dL (74-106); POTASSIUM 2.9 mmol/L (3.5-5.1)
[2023-01-20] MEDS: CEFTRIAXONE 2 GM in DEXTROSE 5%-WATER 100 ML IVPB SCH (11:09)
[2023-01-20] MEDS: AMINO ACIDS/PROTEIN HYDROLYS 30 ML LIQUID.PKT PO SCH ×2 (11:14→16:45)
[2023-01-20] MEDS: ZINC SULFATE 220 MG CAPSULE (FP) PO SCH (11:14)
[2023-01-20] MEDS: FLUDROCORTISONE ACETATE 0.1 MG TABLET (FP) PO SCH (11:14)
[2023-01-20] MEDS: DOCUSATE SODIUM 100 MG CAPSULE (FP) PO SCH (11:14)
[2023-01-20] MEDS: MIDODRINE HCL 5 MG TABLET PO SCH ×2 (11:15→15:51)
[2023-01-20] MEDS: ASCORBIC ACID 500 MG TABLET (FP) PO SCH (11:15)
[2023-01-20] MEDS: FAMOTIDINE 20 MG TABLET PO SCH (11:15)
[2023-01-20] MEDS: MULTIVITAMINS (DAILY MVI) TABLET (FP) PO SCH (11:15)
[2023-01-20] MEDS ORDERED: POTASSIUM CHLORIDE ORAL LIQUID 20 MEQ/15 ML PO ONE ×3 (11:25→22:00)
[2023-01-20] MEDS ORDERED: SODIUM CHLORIDE 0.9%/KCL 20 MEQ/1,000 ML INFUS.BAG IV SCH (11:30)
[2023-01-20] MEDS ORDERED: KCL 10 MEQ IVPB 10 MEQ/100 ML INFUS.BAG IVPB SCH (11:30)
[2023-01-20] MEDS: COLLAGENASE CLOSTRIDIUM HIST. 30 GRAMS TUBE TP SCH (14:00)
[2023-01-20 18:39] VITALS: BP 100/52; PULSE 70; RESP 16; TEMP 98.8
== END 2023-01-20 17:42 | disposition short-term general hospital (02) | DRG 871 ==
LOC: JER 15:25 → JERBED 17:45 → JICU 19:28 → J8W 01-18 17:58
PROVIDERS: ADMIT Internal Medicine Pulmonary Disease; ATTEND Nurse Practitioner Family
PROC: 05HN33Z Insertion of Infusion Device into Left Internal Jugular Vein, Percutaneous Approach (ICD-10-PCS; principal; 2023-01-11)
DX: A41.89 Other specified sepsis (principal); E43 Unspecified severe protein-calorie malnutrition; R65.21 Severe sepsis with septic shock; E87.20 Acidosis, unspecified; R64 Cachexia; N17.9 Acute kidney failure, unspecified; C55 Malignant neoplasm of uterus, part unspecified; D72.829 Elevated white blood cell count, unspecified; D69.6 Thrombocytopenia, unspecified; I95.9 Hypotension, unspecified; E83.39 Other disorders of phosphorus metabolism; Z68.20 Body mass index [BMI] 20.0-20.9, adult; R94.5 Abnormal results of liver function studies; D25.9 Leiomyoma of uterus, unspecified; M54.50 Low back pain, unspecified; L89.152 Pressure ulcer of sacral region, stage 2; L89.322 Pressure ulcer of left buttock, stage 2; L89.319 Pressure ulcer of right buttock, unspecified stage
CPT/HCPCS: 0241U-QW; 36415; 36430; 36511; 36600; 70450-TC; 71045-TC-FY; 71270-TC; 74178-TC; 76705-TC; 80048; 80053; 80076; 81003; 82140; 82272; 82310; 82550; 82553; 82803; 82955; 82962; 83010; 83036; 83605; 83615; 83735; 84100; 84132; 84443; 84484; 84550; 85025; 85027; 85041; 85045; 85379; 85384; 85610; 85730; 86850; 86900; 86901; 86922; 87040; 87070; 87076; 87077; 87086; 87205; 87635; 93005; 93010; 93306-TC; 97116-GP; 97162-GP; 99285-25; G0480; J3490; P9034; P9038; P9058; Q9967

== ENCOUNTER 2024-12-20 17:53 | Emergency (ER) | payer BC, OTHER ==
[2024-12-20 18:03] VITALS: BP 138/85; PULSE 102; RESP 20; TEMP 98.7; BMI 25.7
[2024-12-20] MEDS ORDERED: methylPREDNISolone NA SUCC 125 MG/2 ML VIAL ONE (18:18)
[2024-12-20] MEDS ORDERED: ALBUTEROL SO4 2.5/IPRATROPIUM 0.5 INH SOL 3 ML VIAL.NEB. NEB ONE (18:18)
[2024-12-20] MEDS: ALBUTEROL SO4 2.5/IPRATROPIUM 0.5 INH SOL 3 ML VIAL.NEB. NEB SCH (18:25)
[2024-12-20] MEDS: methylPREDNISolone NA SUCC 125 MG/2 ML VIAL IVPUSH ONE (18:25)
[2024-12-20 18:38] LABS: ABSOLUTE IMMATURE GRANULOCYTES 0.02 x10^3/uL (0.0-0.031); BASOPHILS # 0.03 x10^3/uL (0.01-0.08); EOSINOPHIL % 2.4 % (0.7-5.8); EOSINOPHILS # 0.15 x10^3/uL (0.04-0.36); HEMATOCRIT 43.7 % (34.1-44.9); HEMOGLOBIN 13.5 g/dL (11.2-15.7); MCHC 30.9 g/dl (32.2-35.5); MEAN CELL VOLUME 80.6 fl (79.4-94.8); MEAN PLT VOLUME 10.4 fl (9.4-12.3); MONOCYTE # 0.56 x10^3/uL (0.24-0.86); PLATELET COUNT 204 x10^3/uL (182-369); RDW 14.7 % (12.4-16.6)
[2024-12-20 19:48] LABS: POTASSIUM 3.8 mmol/L (3.5-5.1)
[2024-12-20 19:50] LABS: CALCIUM 9.6 mg/dL (8.5-10.1)
[2024-12-20 19:51] LABS: ALBUMIN 4.1 g/dl (3.4-5.0); BLOOD UREA NITROGEN 16.9 mg/dL (7-18); MAGNESIUM 2.2 mg/dL (1.8-2.4)
[2024-12-20 19:53] LABS: CREATININE 0.8 mg/dL (0.55-1.3)
[2024-12-20 19:55] LABS: BILIRUBIN,TOTAL 0.3 mg/dL (0.2-1); TOT PROT 7.8 g/dl (6.4-8.2)
== END 2024-12-20 20:37 | disposition home or self-care (01) ==
LOC: JER 17:53
PROC: 3E033GC Introduction of Other Therapeutic Substance into Peripheral Vein, Percutaneous Approach (ICD-10-PCS; principal; 2024-12-20)
PROC: 3E0F7GC Introduction of Other Therapeutic Substance into Respiratory Tract, Via Natural or Artificial Opening (ICD-10-PCS; 2024-12-20)
PROC: 3E0F7GC Introduction of Other Therapeutic Substance into Respiratory Tract, Via Natural or Artificial Opening (ICD-10-PCS; 2024-12-20)
DX: R06.2 Wheezing (principal)
CPT/HCPCS: 36415; 71045-TC-FY; 80053; 83735; 84484; 85025; 93005; 93010; 99291

== ENCOUNTER 2024-12-21 03:05 | Emergency (ER) | payer BC, OTHER ==
[2024-12-21 03:08] VITALS: RESP 16; TEMP 97.8; BMI 25.7
[2024-12-21 04:42] LABS: PH,URINE 5.5 (5.0-8.0); URINE APPEARANCE CLEAR; URINE BILIRUBIN NEGATIVE (NEGATIVE); URINE COLOR YELLOW; URINE GLUCOSE (UA) TRACE (NEGATIVE); URINE KETONE NEGATIVE (NEGATIVE); URINE LEUK ESTERASE NEGATIVE (NEGATIVE); URINE NITRITE NEGATIVE (NEGATIVE); URINE PROTEIN NEGATIVE (NEGATIVE); URINE UROBILINOGEN 0.2 mg/dL (0.2-1.0)
[2024-12-21] MEDS ORDERED: MECLIZINE HCL 25 MG TABLET (FP) ONE (05:06)
[2024-12-21] MEDS: MECLIZINE HCL 25 MG TABLET (FP) PO ONE (05:09)
[2024-12-21 07:45] VITALS: BP 124/83; PULSE 71
== END 2024-12-21 08:11 | disposition home or self-care (01) ==
LOC: JER 03:05
DX: R42 Dizziness and giddiness (principal)
CPT/HCPCS: 70450-TC; 81003; 87086; 93005; 93010; 99285-25